=== PATIENT | female | born 1940 | race Caucasian/White ===

== ENCOUNTER 2017-09-18 14:40 | Inpatient (IN) ==
[2017-09-18 15:51] LABS: Basophils % 0.2 % (0.0-0.8); Hematocrit 35.3 VOL% (35.7-47.0); Hemoglobin 12.1 GM/DL (12.0-16.0); Immature Granulocytes % 0.3 %; Immature Granulocytes Absolute 0.05 #; Lymphocytes # 0.7 10*3/uL (1.4-4.0); Lymphocytes % 4.7 % (21.3-54.2); Mean Corpuscular HGB Conc 34.3 GM/DL (32-36); Mean Corpuscular Hemoglobin 31 PG (27-34); Mean Corpuscular Volume 91.2 FL (87-102); Monocytes # 1.6 10*3/uL (0.11-0.8); Monocytes % 10.7 % (1.7-12.7); Neutrophils # 12.1 10*3/uL (1.4-7.4); Neutrophils % 84.1 % (38.7-73.9); Platelet Count 178 T/CUMM (130-400); Red Blood Count 3.87 MC/CUMM (3.8-5.5); Red Cell Distribution Width 12.5 % (9.3-17.3); White Blood Count 14.4 T/CUMM (4-12)
[2017-09-18 16:11] LABS: Osmolality,Calculated 243.1 MOS/KG (273-304); Potassium 4.4 MMOL/L (3.5-5.1)
[2017-09-18 16:15] LABS: Band Neutrophils 6 % (0-10); Lymphocytes 3 % (20-55); Platelet Estimate Adequate; Segmented Neutrophils 78 % (50-85); Total Cells Counted 100
[2017-09-18] MEDS ORDERED: ACETAMINOPHEN 325 MG TABLET PO PRN (18:19)
[2017-09-18] MEDS ORDERED: ALBUTEROL 2.5 MG/3 ML NEB RESP TX PRN (18:19)
[2017-09-18 18:58] LABS: Free T4 (Free Thyroxine) 1.85 NG/DL (0.76-1.46); Thyroid Stimulating Hormone 0.076 uIU/ml (0.358-3.74)
[2017-09-18] MEDS: ALBUTEROL/IPRATROPIUM 3 ML NEB RESP TX SCH (20:46)
[2017-09-18] MEDS ORDERED: ENOXAPARIN 40 MG/0.4 ML SYRINGE SUBCUT SCH (21:00)
[2017-09-18] MEDS: SODIUM CHLORIDE 0.9% 1,000 ML IV SCH (21:00)
[2017-09-18] MEDS: cefTRIAXone 1,000 MG in SYRINGE 1 EACH IV SCH (22:05)
[2017-09-18] MEDS: AZITHROMYCIN INJ 500 MG in SODIUM CHLORIDE 0.9% 250 ML IV SCH (23:59)
[2017-09-19] MEDS: ALBUTEROL/IPRATROPIUM 3 ML NEB RESP TX SCH ×4 (01:28→19:52)
[2017-09-19 06:06] LABS: Basophils % 0.1 % (0.0-0.8); Hematocrit 33.5 VOL% (35.7-47.0); Hemoglobin 11.5 GM/DL (12.0-16.0); Immature Granulocytes % 0.5 %; Immature Granulocytes Absolute 0.07 #; Lymphocytes # 0.7 10*3/uL (1.4-4.0); Lymphocytes % 4.8 % (21.3-54.2); Mean Corpuscular HGB Conc 34.3 GM/DL (32-36); Mean Corpuscular Hemoglobin 31 PG (27-34); Mean Corpuscular Volume 89.8 FL (87-102); Mean Platelet Volume 9.9 FL (9.6-12.0); Monocytes # 2.3 10*3/uL (0.11-0.8); Monocytes % 16.8 % (1.7-12.7); Neutrophils # 10.7 10*3/uL (1.4-7.4); Neutrophils % 77.8 % (38.7-73.9); Platelet Count 193 T/CUMM (130-400); Red Blood Count 3.73 MC/CUMM (3.8-5.5); Red Cell Distribution Width 12.3 % (9.3-17.3); White Blood Count 13.8 T/CUMM (4-12)
[2017-09-19 06:31] LABS: Band Neutrophils 10 % (0-10); Hypochromasia 1+; Lymphocytes 5 % (20-55); Metamyelocytes 2 %; Segmented Neutrophils 68 % (50-85); Total Cells Counted 100
[2017-09-19 06:32] LABS: Platelet Estimate Adequate
[2017-09-19 06:37] LABS: Albumin 2.4 G/DL (3.4-5.0); Bilirubin,Total 0.7 MG/DL (0.2-1.0); Calcium 8.5 MG/DL (8.5-10.1); Osmolality,Calculated 252.2 MOS/KG (273-304); Potassium 3.8 MMOL/L (3.5-5.1); Total Protein 5.9 G/DL (6.4-8.3)
[2017-09-19 07:45] LABS: Apearance,Urine CLEAR (Clear); Bilirubin,Urine Negative (Negative); Blood, Urine Negative (Negative); Glucose,Urine (UA) Negative (Negative); Ketones,Urine 20 mg/dL (Negative); Mucus,Urine Occasional /LPF (Occasional); Nitrite,Urine Negative (Negative); Protein,Urine Negative; RBC,Urine 2 /HPF (0-4); Squamous Epithelial Cell,Urine Occasional /HPF (0-10); Urine Color Yellow (Yellow); Urine Specific Gravity 1.024 (1.001-1.035); WBC,Urine 1 /HPF (0-6)
[2017-09-19] MEDS ORDERED: METOPROLOL TARTRATE 5 MG/5 ML VIAL IV ONE (07:57)
[2017-09-19] MEDS: SODIUM CHLORIDE 0.9% 1,000 ML IV SCH ×2 (08:06→16:59)
[2017-09-19] MEDS ORDERED: ACETAMINOPHEN/diphenhydrAMINE 500-25 MG TABLET PO PRN (08:29)
[2017-09-19] MEDS ORDERED: IPRATROPIUM 0.06% NASAL SPRAY 15 ML BOTTLE BOTH NARES PRN (08:29)
[2017-09-19] MEDS ORDERED: DORZOLAMIDE/TIMOLOL OPH SOLN 10 ML BOTTLE BOTH EYES SCH (09:00)
[2017-09-19] MEDS: DIVALPROEX 500 MG TABLET PO SCH ×2 (09:20→20:25)
[2017-09-19] MEDS: DILTIAZEM CD 180 MG CAPSULE PO SCH (09:20)
[2017-09-19] MEDS: CALCIUM (CARBONATE)/VITAMIN D 500 MG-200 UNIT TABLET PO SCH ×2 (09:20→20:25)
[2017-09-19] MEDS: DIGOXIN 0.25 MG TABLET PO SCH ×2 (09:20→20:25)
[2017-09-19] MEDS: predniSONE 20 MG TABLET PO SCH (09:20)
[2017-09-19] MEDS: PANTOPRAZOLE 40 MG TABLET PO SCH (09:21)
[2017-09-19] MEDS: SODIUM CHLORIDE 5% OPH SOLN 15 ML BOTTLE BOTH EYES SCH (09:21)
[2017-09-19] MEDS: GABAPENTIN 100 MG CAPSULE PO SCH (09:21)
[2017-09-19] MEDS: DESITIN 4OZ/NYSTATIN 15 GRAM MIXTURE PASTE TOP SCH ×2 (09:21→20:37)
[2017-09-19] MEDS: DORZOLAMIDE/TIMOLOL OPH SOLN 10 ML BOTTLE BOTH EYES SCH ×2 (09:56→21:28)
[2017-09-19] MEDS: LEVOTHYROXINE 125 MCG TABLET PO SCH (10:51)
[2017-09-19] MEDS: ENOXAPARIN 60 MG/0.6 ML SYRINGE SUBCUT SCH ×2 (11:08→21:44)
[2017-09-19] MEDS: POTASSIUM CHLORIDE 8 MEQ CAPSULE PO SCH ×2 (11:09→20:25)
[2017-09-19 11:12] LABS: ABG Base Excess 4.3 MMOL/L (-2.5-2.5); ABG HCO3 28.2 MMOL/L (20-26); ABG Oxygen Saturation 93.6 % (95-100); ABG PCO2 48.4 MM HG (35-48); ABG PO2 66.5 MM HG (80-95); ABG TCO2 26.9 MMOL/L (23-27)
[2017-09-19] MEDS: ALBUTEROL 2.5 MG/3 ML NEB RESP TX SCH ×3 (17:23→19:54)
[2017-09-19] MEDS: IPRATROPIUM 500 MCG/2.5 ML NEB RESP TX SCH ×2 (17:24→19:54)
[2017-09-19] MEDS ORDERED: WARFARIN 5 MG TABLET PO SCH (18:00)
[2017-09-19] MEDS: cefTRIAXone 1,000 MG in SYRINGE 1 EACH IV SCH (18:02)
[2017-09-19] MEDS: BUDESONIDE 0.5 MG/2 ML NEB RESP TX SCH (19:52)
[2017-09-19] MEDS: LURASIDONE 40 MG TABLET PO SCH (20:25)
[2017-09-19] MEDS: MULTIVITAMIN (CENTRUM) TABLET PO SCH (20:25)
[2017-09-19] MEDS: AZITHROMYCIN INJ 500 MG in SODIUM CHLORIDE 0.9% 250 ML IV SCH (20:26)
[2017-09-19] MEDS: BIMATOPROST 0.01% OPH SOLN 2.5 ML BOTTLE BOTH EYES SCH (20:26)
[2017-09-19] MEDS ORDERED: BIMATOPROST 0.01% OPH SOLN 2.5 ML BOTTLE BOTH EYES SCH (21:00)
[2017-09-20] MEDS: ALBUTEROL/IPRATROPIUM 3 ML NEB RESP TX SCH ×4 (00:34→19:29)
[2017-09-20] MEDS: LEVOTHYROXINE 125 MCG TABLET PO SCH (06:00)
[2017-09-20 06:20] LABS: Basophils % 0.3 % (0.0-0.8); Hematocrit 33.3 VOL% (35.7-47.0); Hemoglobin 11.4 GM/DL (12.0-16.0); Immature Granulocytes % 1.7 %; Immature Granulocytes Absolute 0.24 #; Lymphocytes # 1.4 10*3/uL (1.4-4.0); Lymphocytes % 10.4 % (21.3-54.2); Mean Corpuscular HGB Conc 34.2 GM/DL (32-36); Mean Corpuscular Hemoglobin 31 PG (27-34); Mean Corpuscular Volume 91.2 FL (87-102); Mean Platelet Volume 9.7 FL (9.6-12.0); Monocytes # 1.7 10*3/uL (0.11-0.8); Neutrophils # 10.4 10*3/uL (1.4-7.4); Neutrophils % 75.6 % (38.7-73.9); Platelet Count 260 T/CUMM (130-400); Red Blood Count 3.65 MC/CUMM (3.8-5.5); Red Cell Distribution Width 12.7 % (9.3-17.3); White Blood Count 13.8 T/CUMM (4-12)
[2017-09-20 06:26] LABS: PT Patient Result 10.1 SECS
[2017-09-20 06:44] LABS: Calcium 8.9 MG/DL (8.5-10.1); Osmolality,Calculated 260.7 MOS/KG (273-304); Potassium 3.6 MMOL/L (3.5-5.1)
[2017-09-20] MEDS: BUDESONIDE 0.5 MG/2 ML NEB RESP TX SCH ×2 (07:00→19:29)
[2017-09-20] MEDS: IPRATROPIUM 500 MCG/2.5 ML NEB RESP TX SCH (08:15)
[2017-09-20] MEDS: ALBUTEROL 2.5 MG/3 ML NEB RESP TX SCH (08:16)
[2017-09-20] MEDS: ENOXAPARIN 60 MG/0.6 ML SYRINGE SUBCUT SCH (09:00)
[2017-09-20] MEDS: DIVALPROEX 500 MG TABLET PO SCH ×2 (09:01→20:48)
[2017-09-20] MEDS: GABAPENTIN 100 MG CAPSULE PO SCH (09:01)
[2017-09-20] MEDS: CALCIUM (CARBONATE)/VITAMIN D 500 MG-200 UNIT TABLET PO SCH ×2 (09:01→20:48)
[2017-09-20] MEDS: DILTIAZEM CD 180 MG CAPSULE PO SCH (09:01)
[2017-09-20] MEDS: MULTIVITAMIN (CENTRUM) TABLET PO SCH (09:01)
[2017-09-20] MEDS: predniSONE 20 MG TABLET PO SCH (09:01)
[2017-09-20] MEDS: POTASSIUM CHLORIDE 8 MEQ CAPSULE PO SCH ×2 (09:01→20:48)
[2017-09-20] MEDS: DIGOXIN 0.25 MG TABLET PO SCH (09:01)
[2017-09-20] MEDS: PANTOPRAZOLE 40 MG TABLET PO SCH (09:01)
[2017-09-20] MEDS: SODIUM CHLORIDE 5% OPH SOLN 15 ML BOTTLE BOTH EYES SCH (09:02)
[2017-09-20] MEDS: DESITIN 4OZ/NYSTATIN 15 GRAM MIXTURE PASTE TOP SCH ×2 (09:03→20:53)
[2017-09-20] MEDS: DORZOLAMIDE/TIMOLOL OPH SOLN 10 ML BOTTLE BOTH EYES SCH ×2 (09:03→21:00)
[2017-09-20] MEDS: cefTRIAXone 1,000 MG in SYRINGE 1 EACH IV SCH (17:48)
[2017-09-20] MEDS: APIXABAN 2.5 MG TABLET PO SCH (20:48)
[2017-09-20] MEDS: LURASIDONE 40 MG TABLET PO SCH (20:48)
[2017-09-20] MEDS: BIMATOPROST 0.01% OPH SOLN 2.5 ML BOTTLE BOTH EYES SCH (20:48)
[2017-09-20] MEDS ORDERED: AZITHROMYCIN 250 MG TABLET PO SCH (21:00)
[2017-09-21] MEDS: ALBUTEROL/IPRATROPIUM 3 ML NEB RESP TX SCH ×2 (00:57→07:24)
[2017-09-21] MEDS: LEVOTHYROXINE 125 MCG TABLET PO SCH (06:01)
[2017-09-21 07:00] LABS: INR 0.9; PT Patient Result 9.8 SECS
[2017-09-21] MEDS: BUDESONIDE 0.5 MG/2 ML NEB RESP TX SCH (07:24)
[2017-09-21 07:29] LABS: Calcium 9.1 MG/DL (8.5-10.1); Osmolality,Calculated 263.4 MOS/KG (273-304); Potassium 4.7 MMOL/L (3.5-5.1)
[2017-09-21 08:10] VITALS: BP 105/57
[2017-09-21] MEDS: GABAPENTIN 100 MG CAPSULE PO SCH (09:16)
[2017-09-21] MEDS: PANTOPRAZOLE 40 MG TABLET PO SCH (09:16)
[2017-09-21] MEDS: DIVALPROEX 500 MG TABLET PO SCH (09:16)
[2017-09-21] MEDS: APIXABAN 2.5 MG TABLET PO SCH (09:16)
[2017-09-21] MEDS: predniSONE 20 MG TABLET PO SCH (09:16)
[2017-09-21] MEDS: MULTIVITAMIN (CENTRUM) TABLET PO SCH (09:16)
[2017-09-21] MEDS: CALCIUM (CARBONATE)/VITAMIN D 500 MG-200 UNIT TABLET PO SCH (09:16)
[2017-09-21] MEDS: POTASSIUM CHLORIDE 8 MEQ CAPSULE PO SCH (09:16)
[2017-09-21] MEDS: DILTIAZEM CD 180 MG CAPSULE PO SCH (09:17)
[2017-09-21] MEDS: DORZOLAMIDE/TIMOLOL OPH SOLN 10 ML BOTTLE BOTH EYES SCH (09:18)
[2017-09-21] MEDS: DESITIN 4OZ/NYSTATIN 15 GRAM MIXTURE PASTE TOP SCH (09:18)
[2017-09-21] MEDS: SODIUM CHLORIDE 5% OPH SOLN 15 ML BOTTLE BOTH EYES SCH (09:18)
== END 2017-09-21 12:30 | disposition home health service (06) | DRG 190 ==
LOC: N.ED 14:40 → N.EDINP 17:37 → SUPCPDRO 17:37 → N.CC 18:22 → N.5E 19:03

== ENCOUNTER 2017-12-08 05:45 | Inpatient (IN) ==
[2017-11-30 09:30] LABS: Basophils % 0.4 % (0.0-0.8); Eosinophils % 0.1 % (0.00-10.9); Hematocrit 37.8 VOL% (35.7-47.0); Hemoglobin 12.5 GM/DL (12.0-16.0); Immature Granulocytes % 0.3 %; Immature Granulocytes Absolute 0.02 #; Lymphocytes # 2.5 10*3/uL (1.4-4.0); Lymphocytes % 32.6 % (21.3-54.2); Mean Corpuscular HGB Conc 33.1 GM/DL (32-36); Mean Corpuscular Hemoglobin 32 PG (27-34); Mean Corpuscular Volume 97.2 FL (87-102); Mean Platelet Volume 9.9 FL (9.6-12.0); Monocytes # 0.6 10*3/uL (0.11-0.8); Monocytes % 8.3 % (1.7-12.7); Neutrophils # 4.5 10*3/uL (1.4-7.4); Neutrophils % 58.3 % (38.7-73.9); Platelet Count 187 T/CUMM (130-400); Red Blood Count 3.89 MC/CUMM (3.8-5.5); Red Cell Distribution Width 13.8 % (9.3-17.3); White Blood Count 7.7 T/CUMM (4-12)
[2017-11-30 09:47] LABS: Calcium 8.8 MG/DL (8.5-10.1); Osmolality,Calculated 263.4 MOS/KG (273-304); Potassium 4.7 MMOL/L (3.5-5.1)
[2017-12-08] MEDS ORDERED: ALBUTEROL 2.5 MG/3 ML NEB RESP TX ONE (06:00)
[2017-12-08] MEDS ORDERED: ceFAZolin 1,000 MG in SYRINGE 1 EACH IV ONE (06:00)
[2017-12-08] MEDS ORDERED: IPRATROPIUM 500 MCG/2.5 ML NEB RESP TX ONE (06:00)
[2017-12-08] MEDS ORDERED: DIAZEPAM 5 MG TABLET PO ONE (06:00)
[2017-12-08] MEDS ORDERED: FAMOTIDINE 20 MG TABLET PO ONE (06:23)
[2017-12-08] MEDS ORDERED: HEPARIN 5,000 UNIT/1 ML VIAL ONE (06:25)
[2017-12-08] MEDS ORDERED: TISSUE ADHESIVE 1 EACH APPLICATOR TOP ONE (06:25)
[2017-12-08] MEDS ORDERED: THROMBIN TOPICAL (RECOMBINANT) 5,000 UNIT VIAL TOP ONE (06:25)
[2017-12-08] MEDS ORDERED: LIDOCAINE 2% TOP JELLY 20 ML VIAL INTRAURETH ONE (06:25)
[2017-12-08] MEDS ORDERED: FAMOTIDINE 20 MG TABLET ONE (06:38)
[2017-12-08] MEDS ORDERED: DIAZEPAM 5 MG TABLET ONE (06:38)
[2017-12-08] MEDS ORDERED: ceFAZolin 1,000 MG VIAL ONE (06:38)
[2017-12-08] MEDS ORDERED: LACTATED RINGERS 1,000 ML IV SCH (07:00)
[2017-12-08] MEDS ORDERED: HEPARIN/NACL 0.9% 2 UNITS/ML 3,000 ML IV ONE (07:52)
[2017-12-08 09:14] LABS: Apearance,Urine CLEAR (Clear); Bacteria,Urine Occasional /HPF (Few); Bilirubin,Urine Negative (Negative); Blood, Urine Negative (Negative); Glucose,Urine (UA) Negative (Negative); Ketones,Urine Negative (Negative); Mucus,Urine Occasional /LPF (Occasional); Nitrite,Urine Negative (Negative); Protein,Urine Negative; RBC,Urine <1 /HPF (0-4); Urine Color Straw (Yellow); Urine Specific Gravity 1.004 (1.001-1.035); Urine Urobilinogen < 2.0 EU/DL (0.2-1.0); WBC,Urine <1 /HPF (0-6)
[2017-12-08] MEDS ORDERED: NEOSTIGMINE 10 MG/10 ML VIAL ONE (10:25)
[2017-12-08] MEDS ORDERED: HYDROmorphone 2 MG/1 ML VIAL IV PRN (10:53)
[2017-12-08] MEDS ORDERED: ONDANSETRON 4 MG/2 ML VIAL IV PRN ×2 (10:53→11:29)
[2017-12-08] MEDS ORDERED: IPRATROPIUM 0.06% NASAL SPRAY 15 ML BOTTLE BOTH NARES PRN (10:56)
[2017-12-08] MEDS ORDERED: HEPARIN 10,000 UNIT/10 ML VIAL ONE (11:12)
[2017-12-08] MEDS ORDERED: PROPOFOL 200 MG/20 ML VIAL IV ONE (11:12)
[2017-12-08] MEDS ORDERED: HEPARIN/NACL 0.9% 2 UNITS/ML 500 ML IV ONE (11:12)
[2017-12-08 11:13] LABS: Hematocrit 33.7 VOL% (35.7-47.0); Hemoglobin 11.4 GM/DL (12.0-16.0)
[2017-12-08] MEDS ORDERED: fentaNYL 100 MCG/2 ML VIAL ONE (11:13)
[2017-12-08] MEDS ORDERED: ETOMIDATE 40 MG/20 ML VIAL IV ONE (11:13)
[2017-12-08] MEDS ORDERED: ONDANSETRON 4 MG/2 ML VIAL ONE ×2 (11:13→11:25)
[2017-12-08] MEDS ORDERED: PHENYLEPHRINE 10 MG/1 ML VIAL IV ONE (11:13)
[2017-12-08] MEDS ORDERED: GLYCOPYRROLATE 0.4 MG/2 ML VIAL ONE (11:14)
[2017-12-08] MEDS ORDERED: SUCCINYLCHOLINE 200 MG/10 ML VIAL ONE (11:14)
[2017-12-08] MEDS ORDERED: MORPHINE 10 MG/1 ML VIAL ONE (11:24)
[2017-12-08] MEDS: MORPHINE 10 MG/1 ML VIAL IV PRN ×2 (11:25→11:40)
[2017-12-08 12:46] LABS: Calcium 8.8 MG/DL (8.5-10.1); Osmolality,Calculated 270.8 MOS/KG (273-304); Potassium 4.2 MMOL/L (3.5-5.1)
[2017-12-08] MEDS: LACTATED RINGERS 1,000 ML IV SCH ×3 (13:05→23:49)
[2017-12-08] MEDS ORDERED: MORPHINE 2 MG/1 ML SYRINGE IV PRN ×2 (14:46→14:48)
[2017-12-08] MEDS ORDERED: KETOROLAC 30 MG/1 ML VIAL IV ONE (14:46)
[2017-12-08] MEDS ORDERED: MORPHINE 10 MG/1 ML VIAL IV PRN (14:48)
[2017-12-08] MEDS: IPRATROPIUM 500 MCG/2.5 ML NEB RESP TX SCH (19:10)
[2017-12-08] MEDS: KETOROLAC 10 MG TABLET PO SCH ×2 (20:42→23:46)
[2017-12-08] MEDS: DIVALPROEX 500 MG TABLET PO SCH (20:43)
[2017-12-08] MEDS: POTASSIUM CHLORIDE 8 MEQ CAPSULE PO SCH (20:43)
[2017-12-08] MEDS: DORZOLAMIDE/TIMOLOL OPH SOLN 10 ML BOTTLE BOTH EYES SCH (20:46)
[2017-12-08] MEDS ORDERED: LURASIDONE 40 MG TABLET PO SCH (21:00)
[2017-12-08] MEDS ORDERED: SODIUM CHLORIDE 5% OPH SOLN 15 ML BOTTLE BOTH EYES SCH (21:00)
[2017-12-08] MEDS ORDERED: BIMATOPROST 0.01% OPH SOLN 2.5 ML BOTTLE BOTH EYES SCH (21:00)
[2017-12-09] MEDS: LACTATED RINGERS 1,000 ML IV SCH ×2 (02:40→07:40)
[2017-12-09 05:45] LABS: Hemoglobin 9.8 GM/DL (12.0-16.0)
[2017-12-09] MEDS: KETOROLAC 10 MG TABLET PO SCH (05:50)
[2017-12-09 05:51] LABS: Basophils % 0.4 % (0.0-0.8); Hematocrit 28.3 VOL% (35.7-47.0); Hemoglobin 10.1 GM/DL (12.0-16.0); Immature Granulocytes % 0.4 %; Immature Granulocytes Absolute 0.03 #; Lymphocytes # 1.4 10*3/uL (1.4-4.0); Lymphocytes % 18.9 % (21.3-54.2); Mean Corpuscular HGB Conc 35.7 GM/DL (32-36); Mean Corpuscular Hemoglobin 33 PG (27-34); Mean Corpuscular Volume 92.8 FL (87-102); Monocytes # 0.9 10*3/uL (0.11-0.8); Monocytes % 12.3 % (1.7-12.7); Neutrophils # 5.2 10*3/uL (1.4-7.4); Platelet Count 155 T/CUMM (130-400); Red Blood Count 3.05 MC/CUMM (3.8-5.5); Red Cell Distribution Width 13.5 % (9.3-17.3); White Blood Count 7.6 T/CUMM (4-12)
[2017-12-09 06:25] LABS: Potassium 3.5 MMOL/L (3.5-5.1)
[2017-12-09] MEDS ORDERED: LEVOTHYROXINE 125 MCG TABLET PO SCH (06:30)
[2017-12-09] MEDS ORDERED: PANTOPRAZOLE 40 MG TABLET PO SCH (06:30)
[2017-12-09 06:37] LABS: Calcium 7.8 MG/DL (8.5-10.1); Osmolality,Calculated 264.2 MOS/KG (273-304); Potassium 3.5 MMOL/L (3.5-5.1)
[2017-12-09] MEDS: IPRATROPIUM 500 MCG/2.5 ML NEB RESP TX SCH (07:05)
[2017-12-09 08:52] VITALS: BP 102/62
[2017-12-09] MEDS ORDERED: ASCORBIC ACID 500 MG TABLET PO SCH (09:00)
[2017-12-09] MEDS ORDERED: CHOLECALCIFEROL 1,000 UNIT TABLET PO SCH (09:00)
[2017-12-09] MEDS ORDERED: GABAPENTIN 100 MG CAPSULE PO SCH (09:00)
[2017-12-09] MEDS: DIVALPROEX 500 MG TABLET PO SCH (09:29)
[2017-12-09] MEDS: POTASSIUM CHLORIDE 8 MEQ CAPSULE PO SCH (09:29)
[2017-12-09] MEDS: DORZOLAMIDE/TIMOLOL OPH SOLN 10 ML BOTTLE BOTH EYES SCH (09:30)
== END 2017-12-09 10:45 | disposition home or self-care (01) | DRG 269 ==
LOC: N.SDSINP 05:45 → EDSTATUS 07:00 → N.4E 10:53
PROVIDERS: ADMIT Surgery; ATTEND Surgery
PROC: IRERAAA (2017-12-08 07:05)

== ENCOUNTER 2021-12-30 09:32 | Inpatient (IN) ==
[2021-12-30] MEDS ORDERED: cefTRIAXone 1,000 MG in SODIUM CHLORIDE 0.9% 100 ML IV STA (10:19)
[2021-12-30] MEDS ORDERED: ALBUTEROL/IPRATROPIUM 3 ML NEB RESP TX STA (10:19)
[2021-12-30 10:49] LABS: Basophils % 0.2 % (0.0-0.8); Hematocrit 45.7 VOL% (35.7-47.0); Hemoglobin 14.7 GM/DL (12.0-16.0); Immature Granulocytes % 0.6 %; Immature Granulocytes Absolute 0.05 #; Lymphocytes # 0.4 10*3/uL (1.4-4.0); Lymphocytes % 4.7 % (21.3-54.2); Mean Corpuscular HGB Conc 32.2 GM/DL (32-36); Mean Corpuscular Volume 96.6 FL (87-102); Mean Platelet Volume 8.9 FL (9.6-12.0); Monocytes # 0.6 10*3/uL (0.11-0.8); Monocytes % 7.2 % (1.7-12.7); Neutrophils % 87.3 % (38.7-73.9); Platelet Count 187 T/CUMM (130-400); Red Blood Count 4.73 MC/CUMM (3.8-5.5); Red Cell Distribution Width 14.8 % (9.3-17.3); White Blood Count 8.1 T/CUMM (4-12)
[2021-12-30 11:11] LABS: Albumin 2.6 G/DL (3.4-5.0); Bilirubin,Total 0.7 MG/DL (0.20-1.00); Calcium 10.1 MG/DL (8.5-10.1); Osmolality,Calculated 260.8 MOS/KG (273-304); Potassium 5.2 MMOL/L (3.5-5.1); Total Protein 7.3 G/DL (6.4-8.2)
[2021-12-30 11:27] LABS: Lymphocytes 4 % (20-55); Platelet Estimate Adequate; Total Cells Counted 100
[2021-12-30] MEDS ORDERED: ONDANSETRON 4 MG/2 ML VIAL IV PRN (12:49)
[2021-12-30] MEDS ORDERED: ACETAMINOPHEN 325 MG TABLET PO PRN (12:49)
[2021-12-30] MEDS ORDERED: DEXTROSE 10% 250 ML BAG IV PRN (12:54)
[2021-12-30] MEDS: ALBUTEROL 2.5 MG/3 ML NEB RESP TX SCH ×2 (13:17→19:58)
[2021-12-30] MEDS ORDERED: NICOTINE 21 MG/24 HR PATCH TRANSDERM PRN (13:19)
[2021-12-30] MEDS: ENOXAPARIN 40 MG/0.4 ML SYRINGE SUBCUT SCH (14:33)
[2021-12-30] MEDS: AZITHROMYCIN INJ 500 MG in SODIUM CHLORIDE 0.9% 250 ML IV SCH (14:33)
[2021-12-31] MEDS: ALBUTEROL 2.5 MG/3 ML NEB RESP TX SCH ×4 (01:20→20:15)
[2021-12-31 05:53] LABS: Basophils % 0.2 % (0.0-0.8); Hematocrit 41.3 VOL% (35.7-47.0); Hemoglobin 13.4 GM/DL (12.0-16.0); Immature Granulocytes % 0.3 %; Immature Granulocytes Absolute 0.03 #; Lymphocytes # 0.3 10*3/uL (1.4-4.0); Lymphocytes % 3.4 % (21.3-54.2); Mean Corpuscular HGB Conc 32.4 GM/DL (32-36); Mean Corpuscular Volume 96.5 FL (87-102); Mean Platelet Volume 8.8 FL (9.6-12.0); Monocytes # 0.7 10*3/uL (0.11-0.8); Monocytes % 7.8 % (1.7-12.7); Neutrophils % 88.3 % (38.7-73.9); Platelet Count 182 T/CUMM (130-400); Red Blood Count 4.28 MC/CUMM (3.8-5.5); Red Cell Distribution Width 14.6 % (9.3-17.3); White Blood Count 8.8 T/CUMM (4-12)
[2021-12-31 06:16] LABS: Calcium 8.9 MG/DL (8.5-10.1); Osmolality,Calculated 268.1 MOS/KG (273-304); Potassium 4.7 MMOL/L (3.5-5.1)
[2021-12-31 06:18] LABS: Eosinophils 1 % (0-10); Lymphocytes 4 % (20-55); Platelet Estimate Adequate; Total Cells Counted 100
[2021-12-31 06:24] LABS: Risk Ratio 4.4; Thyroid Stimulating Hormone 0.997 uIU/ml (0.358-3.74)
[2021-12-31] MEDS: cefTRIAXone 1,000 MG in SODIUM CHLORIDE 0.9% 100 ML IV SCH (08:40)
[2021-12-31] MEDS: ENOXAPARIN 40 MG/0.4 ML SYRINGE SUBCUT SCH (17:30)
[2021-12-31] MEDS: AZITHROMYCIN INJ 500 MG in SODIUM CHLORIDE 0.9% 250 ML IV SCH (17:30)
[2022-01-01] MEDS: ALBUTEROL 2.5 MG/3 ML NEB RESP TX SCH ×2 (00:23→10:42)
[2022-01-01] MEDS: cefTRIAXone 1,000 MG in SODIUM CHLORIDE 0.9% 100 ML IV SCH (09:18)
[2022-01-01 11:35] VITALS: BP 156/92
== END 2022-01-01 14:12 | disposition home health service (06) | DRG 180 ==
LOC: N.ED 09:32 → N.5E 12:36 → SUATTDRO 12:36 → N.5E 16:30
PROVIDERS: ADMIT Internal Medicine; ATTEND Internal Medicine Geriatric Medicine